=== PATIENT | male | born 1975 | race Caucasian/White ===

== ENCOUNTER 2020-10-25 15:54 | Emergency (ER) | payer SELFPAY ==
[~2020-10-25] VITALS: Ht 180.3 cm; Wt 105.0 kg
[2020-10-26 01:00] VITALS: BP 123/75
== END 2020-10-26 01:20 | disposition home or self-care (01) ==
LOC: ER 15:54
DX: F10.229 Alcohol dependence with intoxication, unspecified (principal); Y90.0 Blood alcohol level of less than 20 mg/100 ml
CPT/HCPCS: 99285

== ENCOUNTER 2023-09-05 12:33 | Emergency (ER) | payer SELFPAY ==
[~2023-09-05] VITALS: Ht 177.8 cm; Wt 85.0 kg
[2023-09-05 12:36] VITALS: O2SAT 100
[2023-09-05 17:53] VITALS: BP 132/72; PULSE 78; RESP 16; TEMP 98.6
== END 2023-09-05 17:54 | disposition home or self-care (01) ==
LOC: ER 12:33
DX: F10.129 Alcohol abuse with intoxication, unspecified (principal); Y90.9 Presence of alcohol in blood, level not specified
CPT/HCPCS: 99283